=== PATIENT | female | born 1995 | race Caucasian/White ===

== ENCOUNTER 2018-11-25 11:52 | Emergency (ER) | payer OTHER ==
[2018-11-25 11:57] VITALS: BP 126/72; PULSE 105; TEMP 99.1; BMI 35.3
[2018-11-25] MEDS ORDERED: ACETAMINOPHEN 325 MG TABLET (FP) PO ONE (12:09)
--- NOTE | 2018-11-25 12:09 | PDOC ---
History of Present Illness - General Chief Complaint: Pain Stated Complaint: ABD PAIN Time Seen by Provider: 11/25/18 12:06 History Source: Patient - History of Present Illness Timing/Duration: reports: intermittent Abdominal Pain Onset Location: reports: RUQ, periumbilical Past History - Past Medical History Allergies/Adverse Reactions: Allergies Allergy/AdvReac Type Severity Reaction Status Date / Time No Known Allergies Allergy Verified 11/25/18 11:57 Home Medications: Ambulatory Orders NK [No Known Home Medication] 11/25/18 COPD: No - Suicide/Smoking/Psychosocial Hx Smoking History: Never smoked Review of Systems - Review of Systems Constitutional: No: Chills, Fever ABD/GI: Yes: Diarrhea, Nausea, Vomiting. No: Blood Streaked Bowels, Constipated , Rectal Bleeding, Tarry Stools : No: Dysuria, Hematuria *Physical Exam - Vital Signs Last Vital Signs Temp Pulse Resp BP Pulse Ox 99.1 F 105 H 20 126/72 99 11/25/18 11:55 11/25/18 11:55 11/25/18 11:55 11/25/18 11:55 11/25/18 11:55 - Physical Exam General Appearance: Yes: Appropriately Dressed. No: Apparent Distress HEENT: positive: Normal Voice Neck: positive: Supple Respiratory/Chest: negative: Respiratory Distress Gastrointestinal/Abdominal: positive: Normal Bowel Sounds, Soft. negative: Tender, Distended, Guarding, Rebound Musculoskeletal: negative: CVA Tenderness Integumentary: positive: Dry, Warm Neurologic: positive: Fully Oriented, Alert, Normal Mood/Affect Moderate Sedation - Procedure Monitoring Vital Signs: Procedure Monitoring Vital Signs Temperature 99.1 F 11/25/18 11:55 Pulse Rate 105 H 11/25/18 11:55 Respiratory Rate 20 11/25/18 11:55 Blood Pressure 126/72 11/25/18 11:55 O2 Sat by Pulse Oximetry (%) 99 11/25/18 11:55 ED Treatment Course - LABORATORY CBC & Chemistry Diagram: 11/25/18 12:34 11/25/18 12:34 Medical Decision Making - Medical Decision Making 11/25/18 12:07 23-year-old female, denies any past medical history, here with several days of RUQ pain that radiates to the umbilicus, unable to describe, intermittent, 8/10 at its worse w/ no exacerbating or alleviating factors. Also reports 5 episodes of non-bloody watery diarrhea and 1 e/o of vomiting. No melena, BRBPR , fever or chills. No dysuria, hematuria or ab/nl vaginal discharge. No history of gallstones or kidney stones. No history of similar symptoms. See exam Biliary colic vs gastritis vs gastroenteritis, less likey renal colic, pancreatitis or appy Stable and in NAD w/ benign abd -pain control -labs -US 11/25/18 14:25 Labs unremarkable. Ultrasound read as possible fatty liver with 1 solitary gallstone without evidence of acute carlos. Repeat heart rate 89, T 98.9 F on reassessment. Pain since relieved with Tylenol. Stable for discharge to follow -up with PMD 11/25/18 14:43 *DC/Admit/Observation/Transfer Diagnosis at time of Disposition: Gallstone Qualifiers: Cholecystitis presence: without cholecystitis Biliary obstruction: without biliary obstruction Qualified Code(s): K80.20 - Calculus of gallbladder without cholecystitis without obstruction - Discharge Dispostion Disposition: HOME Condition at time of disposition: Improved - Referrals Referrals: Sudarshan Gutiérrez [Primary Care Provider] - - Patient Instructions Printed Discharge Instructions: Gallstones Additional Instructions: You have 1 solitary gallstone in your gallbladder which may or may not be the cause of your symptoms. Take Tylenol as needed for pain and follow-up with your PMD in 1-2 weeks - Post Discharge Activity
[2018-11-25] MEDS ORDERED: ACETAMINOPHEN 325 MG TABLET (FP) ONE (12:28)
[2018-11-25 12:43] LABS: BASO % 0.3 % (0-2.0); EOS % 0.8 % (0-4.5); HEMATOCRIT 40.1 % (32.4-45.2); HEMOGLOBIN 13.3 GM/dL (10.7-15.3); LYMPH % 12.6 % (8-40); MCH 26.2 pg (25.7-33.7); MCHC 33.2 g/dl (32.0-36.0); MEAN CELL VOLUME 78.7 fl (80-96); MEAN PLT VOLUME 8.5 fl (7.5-11.1); MONO % 5.9 % (3.8-10.2); NEUT % 80.4 % (42.8-82.8); PLATELET COUNT 229 K/MM3 (134-434); RBC 5.09 M/mm3 (3.60-5.2); RDW 13.8 % (11.6-15.6); WHITE BLOOD COUNT 8.9 K/mm3 (4.0-10.0)
[2018-11-25 13:17] LABS: ALBUMIN 4.2 g/dl (3.4-5.0); ALK PHOS 93 U/L (45-117); ANION GAP 6 MMOL/L (8-16); BILIRUBIN,TOTAL 0.4 mg/dL (0.2-1); BLOOD UREA NITROGEN 19 mg/dL (7-18); CALCIUM 9.3 mg/dL (8.5-10.1); CHLORIDE 106 mmol/L (98-107); CO2 26 mmol/L (21-32); CREATININE 0.6 mg/dL (0.55-1.3); GLUCOSE,RANDOM 95 mg/dL (74-106); LIPASE 170 U/L (73-393); POTASSIUM 4.1 mmol/L (3.5-5.1); SGOT/AST 20 U/L (15-37); SGPT/ALT 38 U/L (13-61); SODIUM 138 mmol/L (136-145); TOT PROT 7.7 g/dl (6.4-8.2)
[2018-11-25 13:38] LABS: URINE APPEARANCE SLCLOUDY; URINE BILIRUBIN NEGATIVE (<2.0 mg/dL); URINE COLOR YELLOW; URINE GLUCOSE (UA) NEGATIVE (NEGATIVE); URINE KETONE NEGATIVE (NEGATIVE); URINE LEUK ESTERASE NEGATIVE (NEGATIVE); URINE NITRITE NEGATIVE (NEGATIVE); URINE PROTEIN NEGATIVE (NEGATIVE); URINE UROBILINOGEN NEGATIVE mg/dL (0.2-1.0)
== END 2018-11-25 14:49 | disposition home or self-care (01) ==
LOC: JER 11:52
DX: K80.20 Calculus of gallbladder without cholecystitis without obstruction (principal)
CPT/HCPCS: 36415; 76705-TC; 80053; 81003; 83690; 84703; 85025; 99282-25

== ENCOUNTER 2020-11-23 20:14 | Inpatient (IN) | payer OTHER ==
[2020-11-23] MEDS ORDERED: ONDANSETRON 4 MG/2 ML VIAL IVPUSH ONE (20:50)
[2020-11-23] MEDS ORDERED: SODIUM CHLORIDE 0.9% 500 ML INFUS.BAG IV ONE (20:50)
[2020-11-23] MEDS ORDERED: ACETAMINOPHEN 1000 MG/100 ML VIAL (NON FORMULARY) IVPB ONE (20:50)
[2020-11-23] MEDS ORDERED: FAMOTIDINE 20 MG/50 ML IVPB 20 MG/50 ML MG IVPB ONE ×2 (20:50→21:21)
[2020-11-23] MEDS ORDERED: ACETAMINOPHEN INJECTION 100 ML IVPB ONE (21:21)
[2020-11-23] MEDS ORDERED: ONDANSETRON 4 MG/2 ML VIAL ONE (21:21)
[2020-11-23 21:38] LABS: BASO % 0.7 % (0-2.0); EOS % 1.7 % (0-4.5); HEMATOCRIT 39.1 % (32.4-45.2); LYMPH % 22.3 % (8-40); MCH 26.3 pg (25.7-33.7); MCHC 33.3 g/dl (32.0-36.0); MEAN CELL VOLUME 78.9 fl (80-96); MEAN PLT VOLUME 8.3 fl (7.5-11.1); MONO % 7.6 % (3.8-10.2); NEUT % 67.7 % (42.8-82.8); PLATELET COUNT 248 K/MM3 (134-434); RBC 4.96 M/mm3 (3.60-5.2); WHITE BLOOD COUNT 6.9 K/mm3 (4.0-10.0)
[2020-11-23 21:43] LABS: POTASSIUM 4.9 mmol/L (3.5-5.1)
[2020-11-23 21:45] LABS: CALCIUM 8.9 mg/dL (8.5-10.1)
[2020-11-23 21:49] LABS: CREATININE 0.6 mg/dL (0.55-1.3)
[2020-11-23 21:50] LABS: BILIRUBIN,TOTAL 2.9 mg/dL (0.2-1); TOT PROT 7.8 g/dl (6.4-8.2)
[2020-11-23 21:54] LABS: EPI CELLS >36 /uL (0-25.1); HCG,QUALITATIVE URINE Negative; HYALINE CASTS 2 /uL (0-3.1); PH,URINE 5.5 (5.0-8.0); URINE APPEARANCE CLOUDY; URINE BILIRUBIN 3+ (NEGATIVE); URINE COLOR DK YELLOW; URINE GLUCOSE (UA) NEGATIVE (NEGATIVE); URINE KETONE TRACE (NEGATIVE); URINE LEUK ESTERASE TRACE (NEGATIVE); URINE NITRITE POSITIVE (NEGATIVE); URINE PROTEIN TRACE (NEGATIVE); URINE WBC 16 /uL (0-25.8)
[2020-11-23 23:04] LABS: INR 1.08 (0.83-1.09)
[2020-11-23 23:06] LABS: ACTIVATED PTT 31.1 SECONDS (25.2-36.5); POTASSIUM 3.5 mmol/L (3.5-5.1)
[2020-11-23 23:08] LABS: CALCIUM 8.1 mg/dL (8.5-10.1)
[2020-11-23 23:09] LABS: ALBUMIN 3.5 g/dl (3.4-5.0); BLOOD UREA NITROGEN 16.3 mg/dL (7-18)
[2020-11-23 23:12] LABS: CREATININE 0.6 mg/dL (0.55-1.3)
[2020-11-23 23:14] LABS: BILIRUBIN,TOTAL 2.1 mg/dL (0.2-1); TOT PROT 6.6 g/dl (6.4-8.2)
[2020-11-24] MEDS ORDERED: morphine CARPU-JECT 2 MG/1 ML DISP.SYRIN IVPUSH ONE (00:40)
[2020-11-24] MEDS ORDERED: CEFTRIAXONE 1 GM in DEXTROSE 5%-WATER - 100 ML IVPB ONE (00:41)
[2020-11-24] MEDS ORDERED: CEFTRIAXONE 1 GM/50 ML BAG ONE (02:12)
[2020-11-24] MEDS ORDERED: morphine SULFATE 4 MG/ML VIAL IVPUSH PRN (02:12)
[2020-11-24] MEDS ORDERED: MORPHINE SULFATE 2 MG/ML VIAL ONE (02:12)
[2020-11-24] MEDS ORDERED: MORPHINE SULFATE 2 MG/ML VIAL IVPUSH PRN (02:12)
[2020-11-24] MEDS: SODIUM CHLORIDE 1,000 ML IV SCH ×2 (03:16→18:17)
[2020-11-24 07:13] LABS: BASO % 0.5 % (0-2.0); EOS % 1.9 % (0-4.5); HEMATOCRIT 33.4 % (32.4-45.2); HEMOGLOBIN 10.9 GM/dL (10.7-15.3); LYMPH % 30.8 % (8-40); MCH 25.9 pg (25.7-33.7); MCHC 32.6 g/dl (32.0-36.0); MEAN CELL VOLUME 79.3 fl (80-96); MEAN PLT VOLUME 8.6 fl (7.5-11.1); NEUT % 61.8 % (42.8-82.8); PLATELET COUNT 219 K/MM3 (134-434); RBC 4.21 M/mm3 (3.60-5.2); RDW 14.3 % (11.6-15.6); WHITE BLOOD COUNT 6.1 K/mm3 (4.0-10.0)
[2020-11-24 07:28] LABS: POTASSIUM 3.7 mmol/L (3.5-5.1)
[2020-11-24 07:43] LABS: CALCIUM 7.9 mg/dL (8.5-10.1)
[2020-11-24 07:44] LABS: ALBUMIN 3.3 g/dl (3.4-5.0); BLOOD UREA NITROGEN 13.8 mg/dL (7-18)
[2020-11-24 07:47] LABS: CREATININE 0.5 mg/dL (0.55-1.3)
[2020-11-24 07:48] LABS: BILIRUBIN,TOTAL 2.8 mg/dL (0.2-1); TOT PROT 6.1 g/dl (6.4-8.2)
[2020-11-24] MEDS ORDERED: IBUPROFEN 600 MG TABLET (FP) PO PRN (12:02)
[2020-11-24 13:13] VITALS: BMI 37.2
[2020-11-24] MEDS ORDERED: cefTRIAXone SODIUM 1 GM VIAL ONE (20:35)
[2020-11-24] MEDS ORDERED: DEXTROSE 5%-WATER - 50 ML IVPB ONE (20:35)
[2020-11-24] MEDS: CEFTRIAXONE 1 GM in DEXTROSE 5%-WATER - 50 ML IVPB SCH (20:39)
[2020-11-25] MEDS: SODIUM CHLORIDE 1,000 ML IV SCH (02:30)
[2020-11-25 08:41] LABS: BASO % 0.4 % (0-2.0); EOS % 1.6 % (0-4.5); HEMATOCRIT 34.8 % (32.4-45.2); HEMOGLOBIN 11.3 GM/dL (10.7-15.3); LYMPH % 20.9 % (8-40); MCH 26.1 pg (25.7-33.7); MCHC 32.4 g/dl (32.0-36.0); MEAN CELL VOLUME 80.5 fl (80-96); MEAN PLT VOLUME 9.2 fl (7.5-11.1); MONO % 4.4 % (3.8-10.2); NEUT % 72.7 % (42.8-82.8); PLATELET COUNT 197 K/MM3 (134-434); RBC 4.32 M/mm3 (3.60-5.2); RDW 14.3 % (11.6-15.6); WHITE BLOOD COUNT 8.1 K/mm3 (4.0-10.0)
[2020-11-25 09:08] LABS: ALBUMIN 3.4 g/dl (3.4-5.0); BLOOD UREA NITROGEN 7.8 mg/dL (7-18); CALCIUM 8.4 mg/dL (8.5-10.1)
[2020-11-25 09:09] LABS: MAGNESIUM 2.2 mg/dL (1.8-2.4)
[2020-11-25 09:11] LABS: PHOSPHOROUS 2.8 mg/dL (2.5-4.9)
[2020-11-25 09:12] LABS: CREATININE 0.5 mg/dL (0.55-1.3)
[2020-11-25 09:13] LABS: BILIRUBIN,TOTAL 1.7 mg/dL (0.2-1); TOT PROT 6.4 g/dl (6.4-8.2)
[2020-11-25] MEDS ORDERED: DEXTROSE 5%-WATER - 50 ML IVPB ONE (10:33)
[2020-11-25] MEDS ORDERED: cefTRIAXone SODIUM 1 GM VIAL ONE (10:33)
[2020-11-25] MEDS: DEXTROSE 5%-NORMAL SALINE 1,000 ML IV SCH (10:38)
[2020-11-25] MEDS: CEFTRIAXONE 1 GM in DEXTROSE 5%-WATER - 50 ML IVPB SCH (10:38)
[2020-11-25] MEDS: IBUPROFEN 600 MG TABLET (FP) PO PRN ×2 (12:46→23:29)
[2020-11-26] MEDS: DEXTROSE 5%-NORMAL SALINE 1,000 ML IV SCH ×2 (05:27→09:53)
[2020-11-26 06:03] LABS: BASO % 0.6 % (0-2.0); EOS % 3.6 % (0-4.5); HEMATOCRIT 34.4 % (32.4-45.2); HEMOGLOBIN 11.2 GM/dL (10.7-15.3); MCH 25.9 pg (25.7-33.7); MCHC 32.6 g/dl (32.0-36.0); MEAN CELL VOLUME 79.6 fl (80-96); MEAN PLT VOLUME 8.5 fl (7.5-11.1); MONO % 5.3 % (3.8-10.2); NEUT % 55.5 % (42.8-82.8); PLATELET COUNT 217 K/MM3 (134-434); RBC 4.33 M/mm3 (3.60-5.2); RDW 14.1 % (11.6-15.6); WHITE BLOOD COUNT 7.3 K/mm3 (4.0-10.0)
[2020-11-26 06:22] LABS: POTASSIUM 3.6 mmol/L (3.5-5.1)
[2020-11-26 06:24] LABS: CALCIUM 8.4 mg/dL (8.5-10.1)
[2020-11-26 06:25] LABS: ALBUMIN 3.4 g/dl (3.4-5.0); MAGNESIUM 2.3 mg/dL (1.8-2.4)
[2020-11-26 06:27] LABS: BILIRUBIN,DIRECT 0.4 mg/dL (0.0-0.2)
[2020-11-26 06:28] LABS: CREATININE 0.5 mg/dL (0.55-1.3); PHOSPHOROUS 2.9 mg/dL (2.5-4.9)
[2020-11-26 06:29] LABS: BILIRUBIN,TOTAL 0.9 mg/dL (0.2-1); TOT PROT 6.4 g/dl (6.4-8.2)
[2020-11-26] MEDS ORDERED: DEXTROSE 5%-WATER - 50 ML IVPB ONE (09:35)
[2020-11-26] MEDS ORDERED: cefTRIAXone SODIUM 1 GM VIAL ONE (09:35)
[2020-11-26] MEDS ORDERED: MIDAZOLAM HCL 2 MG/2 ML SINGLE DOSE VIAL ONE (11:12)
[2020-11-26] MEDS ORDERED: PROPOFOL 20 ML ONE (11:12)
[2020-11-26] MEDS ORDERED: DEXAMETHASONE SOD PHOSPHATE 4 MG/1 ML VIAL ONE (11:12)
[2020-11-26] MEDS ORDERED: ROCURONIUM BROMIDE 50 MG/5 ML SYRINGE ONE (11:12)
[2020-11-26] MEDS ORDERED: ceFAZolin SODIUM 1 GM VIAL ONE ×2 (11:13)
[2020-11-26] MEDS ORDERED: cefTRIAXone SODIUM 1 GM VIAL IVPB ONE (11:15)
[2020-11-26] MEDS ORDERED: ACETAMINOPHEN 325 MG TABLET (FP) PO PRN (11:41)
[2020-11-26] MEDS ORDERED: ONDANSETRON 4 MG/2 ML VIAL IVPUSH PRN ×2 (11:50→12:34)
[2020-11-26] MEDS ORDERED: morphine SULFATE 4 MG/ML VIAL IVPB PRN (11:50)
[2020-11-26] MEDS ORDERED: GLYCOPYRROLATE 0.2 MG/1 ML VIAL ONE (12:43)
[2020-11-26] MEDS ORDERED: NEOSTIGMINE METHYLSULFATE 0.5 MG/ML - 10 ML MDV ONE (12:43)
[2020-11-26] MEDS ORDERED: LACTATED RINGERS SOLUTION 1,000 ML IV SCH (12:45)
[2020-11-26] MEDS: CEFTRIAXONE 1 GM in DEXTROSE 5%-WATER - 50 ML IVPB SCH ×2 (12:46→15:13)
[2020-11-26] MEDS ORDERED: DEXTROSE 5%-NORMAL SALINE 1,000 ML IV SCH (14:24)
[2020-11-26] MEDS ORDERED: IBUPROFEN 600 MG TABLET (FP) PO PRN (14:24)
[2020-11-26] MEDS: oxyCODONE HCL 5 MG TABLET PO PRN ×2 (19:42→23:46)
[2020-11-27 08:06] LABS: BASO % 0.4 % (0-2.0); EOS % 0.1 % (0-4.5); HEMATOCRIT 31.2 % (32.4-45.2); HEMOGLOBIN 10.5 GM/dL (10.7-15.3); LYMPH % 17.2 % (8-40); MCH 26.4 pg (25.7-33.7); MCHC 33.5 g/dl (32.0-36.0); MEAN CELL VOLUME 78.8 fl (80-96); MEAN PLT VOLUME 8.7 fl (7.5-11.1); MONO % 6.3 % (3.8-10.2); PLATELET COUNT 228 K/MM3 (134-434); RBC 3.96 M/mm3 (3.60-5.2); RDW 14.1 % (11.6-15.6); WHITE BLOOD COUNT 10.3 K/mm3 (4.0-10.0)
[2020-11-27 08:20] LABS: POTASSIUM 3.6 mmol/L (3.5-5.1)
[2020-11-27 08:24] LABS: ALBUMIN 3.4 g/dl (3.4-5.0); BLOOD UREA NITROGEN 5.9 mg/dL (7-18); CALCIUM 8.6 mg/dL (8.5-10.1); MAGNESIUM 2.1 mg/dL (1.8-2.4)
[2020-11-27 08:27] LABS: CREATININE 0.5 mg/dL (0.55-1.3)
[2020-11-27 08:28] LABS: PHOSPHOROUS 3.1 mg/dL (2.5-4.9)
[2020-11-27 08:29] LABS: BILIRUBIN,TOTAL 0.7 mg/dL (0.2-1); TOT PROT 6.2 g/dl (6.4-8.2)
[2020-11-27] MEDS ORDERED: cefTRIAXone SODIUM 1 GM VIAL ONE (08:56)
[2020-11-27] MEDS ORDERED: DEXTROSE 5%-WATER - 50 ML IVPB ONE (08:56)
[2020-11-27] MEDS: CEFTRIAXONE 1 GM in DEXTROSE 5%-WATER - 50 ML IVPB SCH (09:16)
[2020-11-27] MEDS ORDERED: PANTOPRAZOLE SODIUM 40 MG VIAL IVPUSH SCH (10:00)
[2020-11-27] MEDS ORDERED: ENOXAPARIN NA (PORCINE) 40 MG/0.4 ML DISP.SYRIN SQ SCH (10:00)
[2020-11-27] MEDS: oxyCODONE HCL 5 MG TABLET PO PRN (14:01)
[2020-11-27 14:51] VITALS: BP 123/54; PULSE 81; TEMP 99.3
== END 2020-11-27 18:09 | disposition home or self-care (01) | DRG 263 ==
LOC: JER 20:14 → JERBED 22:21 → J7W 11-24 12:41
PROVIDERS: ADMIT Hospitalist; ATTEND Internal Medicine
PROC: 0FT44ZZ Resection of Gallbladder, Percutaneous Endoscopic Approach (ICD-10-PCS; principal; 2020-11-26 12:00)
DX: K80.01 Calculus of gallbladder with acute cholecystitis with obstruction (principal); R74.01 Elevation of levels of liver transaminase levels; E66.01 Morbid (severe) obesity due to excess calories; Z68.37 Body mass index [BMI] 37.0-37.9, adult; K76.0 Fatty (change of) liver, not elsewhere classified
CPT/HCPCS: 36415; 71046-TC-FY; 74181-TC; 76705-TC; 80053; 80076; 81003; 83690; 83735; 84100; 84703; 85025; 85610; 85730; 86850; 86900; 86901; 87086; 93005; 93010; 94010; 94760; 99285-25; C9803; J0131; U0003

== ENCOUNTER 2023-12-26 18:39 | Emergency (ER) | payer OTHER ==
[2023-12-26 18:57] VITALS: BP 126/73; RESP 18; BMI 34.9
[2023-12-26] MEDS ORDERED: ACETAMINOPHEN 500 MG TABLET (FP) ONE (20:05)
[2023-12-26] MEDS ORDERED: IBUPROFEN 600 MG TABLET (FP) PO ONE (20:05)
[2023-12-26] MEDS: ACETAMINOPHEN 500 MG TABLET (FP) PO ONE (20:07)
[2023-12-26] MEDS: IBUPROFEN 600 MG TABLET (FP) PO ONE (20:07)
[2023-12-26 21:35] VITALS: PULSE 97; TEMP 99.2
== END 2023-12-26 21:35 | disposition home or self-care (01) ==
LOC: JER 18:39
DX: R50.9 Fever, unspecified (principal); R05.9 Cough, unspecified; R09.81 Nasal congestion; J10.1 Influenza due to other identified influenza virus with other respiratory manifestations; R53.83 Other fatigue; Z20.822 Contact with and (suspected) exposure to COVID-19
CPT/HCPCS: 0241U-QW; 71046-TC-FY; 99284-25